=== PATIENT | female | born 2005 | race Hispanic/Latino ===

== ENCOUNTER 2023-09-19 20:25 | Emergency (ER) | payer BC, SELFPAY ==
[2023-09-19] MEDS ORDERED: Ibuprofen 800 MG TAB ONE (20:41)
== END 2023-09-19 21:18 | disposition home or self-care (01) ==
LOC: BURERS 20:25
DX: S83.004A Unspecified dislocation of right patella, initial encounter (principal); X58.XXXA Exposure to other specified factors, initial encounter